=== PATIENT | female | born 1935 | race Asian ===

== ENCOUNTER 2018-07-17 04:01 | Inpatient (IN) | payer MEDICARE, OTHER, MEDICAID ==
[2018-07-17] MEDS: SOD CHLORIDE 0.9% 500 ML IV (04:04)
[2018-07-17 04:45] LABS: ADD MAN DIFF? NO
[2018-07-17 04:47] LABS: WHITE BLOOD COUNT 5.2 10^3/ul (4.8-10.8)
[2018-07-17 04:47] LABS: BASOPHILS % 0.4 % (0.0-2.0); EOSINOPHILS # 0.2 10^3/ul (0.0-0.5); EOSINOPHILS % 3.9 % (0.0-7.0); HEMOGLOBIN 11.6 g/dl (12.0-16.0); LYMPHOCYTES # 2.1 10^3/ul (0.8-2.9); LYMPHOCYTES % 41.2 % (15.0-51.0); MEAN CORPUSCULAR HEMOGLOBIN 29.6 pg (29.0-33.0); MEAN CORPUSCULAR HGB CONC 32.2 g/dl (32.0-37.0); MEAN CORPUSCULAR VOLUME 91.8 fl (82.0-101.0); MEAN PLATELET VOLUME 10.2 fl (7.4-10.4); MONOCYTE # 0.5 10^3/ul (0.3-0.9); MONOCYTES % 8.7 % (0.0-11.0); NEUTROPHIL # 2.4 10^3/ul (1.6-7.5); NEUTROPHILS % 45.6 % (39.0-77.0); PLATELET COUNT 194 10^3/UL (140-415); RED BLOOD COUNT 3.92 10^6/ul (4.20-5.40); RED CELL DISTRIBUTION WIDTH 13.2 % (11.5-14.5)
[2018-07-17 05:02] LABS: ANION GAP 8 (5-13); BLOOD UREA NITROGEN 48 mg/dl (7-20); CALCIUM 9.4 mg/dl (8.4-10.2); CARBON DIOXIDE 25 mmol/L (21-31); CHLORIDE 108 mmol/L (97-110); CREATININE 1.87 mg/dl (0.44-1.00); GLUCOSE 105 mg/dl (70-220); POTASSIUM 4.7 mmol/L (3.5-5.1); SODIUM 141 mmol/L (135-144)
[2018-07-17 05:05] LABS: PROTIME 12.2 Sec (11.9-14.9)
[2018-07-17 05:06] LABS: PARTIAL THROMBOPLASTIN TIME 31.7 Sec (23.0-35.0)
[2018-07-17 05:13] LABS: TROPONIN-I 0.033 ng/ml (0.000-0.120)
[2018-07-17] MEDS: hydrALAzine 20 MG INJ IV (06:04)
[2018-07-17] MEDS: ONDANSETRON 4 MG INJ IV (06:18)
[2018-07-17] MEDS: ACETAMINOPHEN 325 MG TAB PO (07:36)
[2018-07-17] MEDS ORDERED: HYDROCHLOROTHIAZIDE 25 MG TAB PO (11:45)
[2018-07-17] MEDS ORDERED: LOSARTAN 50 MG TAB PO (11:45)
[2018-07-17] MEDS: AZITHROMYCIN 500 MG in SOD CHLORIDE 0.9% 250 ML IVPB (13:20)
[2018-07-17] MEDS: ATORVASTATIN 10 MG TAB PO (20:56)
[2018-07-17] MEDS ORDERED: NON-FORMULARY/PATIENT OWN MED (Simvastatin* (Zocor*) 10 MG) PO (21:00)
[2018-07-18] MEDS: ASCORBIC ACID 500 MG TAB PO (08:12)
[2018-07-18] MEDS: CHOLECALCIFEROL 1,000 UNIT TAB PO (08:12)
[2018-07-18] MEDS: DONEPEZIL 10 MG TAB PO (08:12)
[2018-07-18] MEDS: LOSARTAN 50 MG TAB PO (08:13)
[2018-07-18] MEDS: HYDROCHLOROTHIAZIDE 25 MG TAB PO (08:13)
[2018-07-18] MEDS: METOPROLOL (XL) 50 MG TAB PO (08:14)
[2018-07-18] MEDS ORDERED: NON-FORMULARY/PATIENT OWN MED (Losartan-Hydrochlorothiazide (Losartan-HCTZ) 1 TAB) PO (09:00)
[2018-07-18 12:26] LABS: ADD UMIC NO; UR ASCORBIC ACID NEGATIVE (NEGATIVE); UR BILIRUBIN (Dip) NEGATIVE (NEGATIVE); UR BLOOD (Dip) NEGATIVE (NEGATIVE); UR CLARITY CLEAR (CLEAR); UR COLOR STRAW (YELLOW); UR GLUCOSE (Dip) NEGATIVE (NEGATIVE); UR KETONES (Dip) NEGATIVE (NEGATIVE); UR LEUKOCYTE ESTERASE (Dip) NEGATIVE Leu/ul (NEGATIVE); UR NITRITE (Dip) NEGATIVE (NEGATIVE); UR SPECIFIC GRAVITY (Dip) 1.012 (1.003-1.030); UR TOTAL PROTEIN (Dip) NEGATIVE (NEGATIVE); UR UROBILINOGEN (Dip) NEGATIVE (NEGATIVE)
[2018-07-18] MEDS: AZITHROMYCIN 500MG/NS (PMX) 250 ML IV (13:02)
[2018-07-18 16:17] LABS: ANION GAP 10 (5-13); BLOOD UREA NITROGEN 58 mg/dl (7-20); CALCIUM 8.7 mg/dl (8.4-10.2); CARBON DIOXIDE 23 mmol/L (21-31); CHLORIDE 105 mmol/L (97-110); CREATININE 1.95 mg/dl (0.44-1.00); GLUCOSE 103 mg/dl (70-220); POTASSIUM 4.6 mmol/L (3.5-5.1); SODIUM 138 mmol/L (135-144)
[2018-07-18] MEDS: ATORVASTATIN 10 MG TAB PO (20:26)
[2018-07-19] MEDS: hydrALAzine 20 MG INJ IV (05:55)
[2018-07-19] MEDS: METOPROLOL (XL) 50 MG TAB PO (09:00)
[2018-07-19] MEDS: DONEPEZIL 10 MG TAB PO (09:06)
[2018-07-19] MEDS: ASCORBIC ACID 500 MG TAB PO (09:06)
[2018-07-19] MEDS: AMLODIPINE 5 MG TAB PO (09:06)
[2018-07-19] MEDS: CHOLECALCIFEROL 1,000 UNIT TAB PO (09:06)
[2018-07-19] MEDS: AZITHROMYCIN 500MG/NS (PMX) 250 ML IV (13:27)
[2018-07-19 18:16] LABS: ANION GAP 14 (5-13); BLOOD UREA NITROGEN 53 mg/dl (7-20); CALCIUM 9.3 mg/dl (8.4-10.2); CARBON DIOXIDE 24 mmol/L (21-31); CHLORIDE 105 mmol/L (97-110); CREATININE 1.79 mg/dl (0.44-1.00); GLUCOSE 154 mg/dl (70-220); POTASSIUM 4.4 mmol/L (3.5-5.1); SODIUM 143 mmol/L (135-144)
[2018-07-19 18:27] LABS: TROPONIN-I 0.025 ng/ml (0.000-0.120)
[2018-07-19] MEDS ORDERED: AMLODIPINE 5 MG TAB PO (21:00)
[2018-07-20] MEDS ORDERED: ASPIRIN 81 MG TAB PO (09:00)
== END 2018-07-19 18:51 | disposition home or self-care (01) | DRG 305 ==
LOC: E/R 04:01 → TEL 05:42
DX: I16.0 Hypertensive urgency (principal); I16.1 Hypertensive emergency; N39.0 Urinary tract infection, site not specified; F03.90 Unspecified dementia, unspecified severity, without behavioral disturbance, psychotic disturbance, mood disturbance, and anxiety; R00.1 Bradycardia, unspecified; D64.9 Anemia, unspecified; E78.00 Pure hypercholesterolemia, unspecified; I12.9 Hypertensive chronic kidney disease with stage 1 through stage 4 chronic kidney disease, or unspecified chronic kidney disease; N18.9 Chronic kidney disease, unspecified; Z86.73 Personal history of transient ischemic attack (TIA), and cerebral infarction without residual deficits
CPT/HCPCS: 36415; 70450; 70552; 71045; 80048; 81003; 84484; 85025; 85610; 85730; 93005; 93306; 93880; 99291-25

== ENCOUNTER 2019-01-19 09:15 | Inpatient (IN) | payer MEDICARE, OTHER ==
[2019-01-19 10:08] LABS: ADD MAN DIFF? NO
[2019-01-19 10:12] LABS: BASOPHILS % 0.3 % (0.0-2.0); EOSINOPHILS # 0.2 10^3/ul (0.0-0.5); EOSINOPHILS % 1.6 % (0.0-7.0); HEMATOCRIT 36.5 % (37.0-47.0); HEMOGLOBIN 12.3 g/dl (12.0-16.0); LYMPHOCYTES # 3.6 10^3/ul (0.8-2.9); LYMPHOCYTES % 35.2 % (15.0-51.0); MEAN CORPUSCULAR HEMOGLOBIN 29.7 pg (29.0-33.0); MEAN CORPUSCULAR HGB CONC 33.7 g/dl (32.0-37.0); MEAN CORPUSCULAR VOLUME 88.2 fl (82.0-101.0); MEAN PLATELET VOLUME 10.5 fl (7.4-10.4); MONOCYTE # 0.6 10^3/ul (0.3-0.9); MONOCYTES % 5.4 % (0.0-11.0); NEUTROPHIL # 5.8 10^3/ul (1.6-7.5); NEUTROPHILS % 57.2 % (39.0-77.0); PLATELET COUNT 179 10^3/UL (140-415); RED BLOOD COUNT 4.14 10^6/ul (4.20-5.40)
[2019-01-19 10:12] LABS: WHITE BLOOD COUNT 10.2 10^3/ul (4.8-10.8)
[2019-01-19 10:15] LABS: ADD UMIC YES; UR ASCORBIC ACID 20 mg/dL (NEGATIVE); UR BILIRUBIN (Dip) NEGATIVE (NEGATIVE); UR BLOOD (Dip) NEGATIVE (NEGATIVE); UR CLARITY CLEAR (CLEAR); UR COLOR COLORLESS (YELLOW); UR GLUCOSE (Dip) NEGATIVE (NEGATIVE); UR KETONES (Dip) NEGATIVE (NEGATIVE); UR LEUKOCYTE ESTERASE (Dip) NEGATIVE Leu/ul (NEGATIVE); UR NITRITE (Dip) NEGATIVE (NEGATIVE); UR RBC 0 /HPF (0-5); UR SPECIFIC GRAVITY (Dip) 1.005 (1.003-1.030); UR TOTAL PROTEIN (Dip) 1+ mg/dl (NEGATIVE); UR UROBILINOGEN (Dip) NEGATIVE (NEGATIVE); UR WBC 0 /HPF (0-5)
[2019-01-19 10:40] LABS: ALANINE AMINOTRANSFERASE 17 IU/L (13-69); ALBUMIN 5.1 g/dl (3.3-4.9); ALBUMIN/GLOBULIN RATIO 1.04; ALKALINE PHOSPHATASE 71 IU/L (42-121); ANION GAP 16 (5-13); ASPARTATE AMINO TRANSFERASE 42 IU/L (15-46); BILIRUBIN,INDIRECT 0.4 mg/dl (0-1.1); BILIRUBIN,TOTAL 0.4 mg/dl (0.2-1.3); BLOOD UREA NITROGEN 46 mg/dl (7-20); CALCIUM 10.4 mg/dl (8.4-10.2); CARBON DIOXIDE 20 mmol/L (21-31); CHLORIDE 106 mmol/L (97-110); GLUCOSE 177 mg/dl (70-220); POTASSIUM 4.5 mmol/L (3.5-5.1); SODIUM 142 mmol/L (135-144)
[2019-01-19] MEDS: SOD CHLORIDE 0.9% 1,000 ML IV ×2 (15:47→20:07)
[2019-01-19] MEDS: ONDANSETRON 4 MG INJ IV (15:47)
[2019-01-19] MEDS: morphine 2 MG INJ IV (15:47)
[2019-01-19] MEDS ORDERED: ACETAMINOPHEN 325 MG TAB PO (17:00)
[2019-01-19] MEDS ORDERED: ONDANSETRON 4 MG INJ IV ×2 (17:00→17:30)
[2019-01-19] MEDS ORDERED: morphine 2 MG INJ IV (17:30)
[2019-01-19] MEDS ORDERED: NACL 0.9% 3 ML SYG IV (17:30)
[2019-01-19] MEDS: ATORVASTATIN 10 MG TAB PO (20:07)
[2019-01-19] MEDS: HEPARIN 5,000 UNIT/1 ML VIAL SC (20:08)
[2019-01-20] MEDS: SOD CHLORIDE 0.9% 1,000 ML IV ×4 (03:18→16:01)
[2019-01-20 05:33] LABS: ADD MAN DIFF? NO
[2019-01-20 05:41] LABS: WHITE BLOOD COUNT 6.1 10^3/ul (4.8-10.8)
[2019-01-20 05:41] LABS: BASOPHILS % 0.7 % (0.0-2.0); EOSINOPHILS # 0.2 10^3/ul (0.0-0.5); EOSINOPHILS % 3.3 % (0.0-7.0); HEMATOCRIT 29.6 % (37.0-47.0); HEMOGLOBIN 9.6 g/dl (12.0-16.0); LYMPHOCYTES # 2.4 10^3/ul (0.8-2.9); LYMPHOCYTES % 39.6 % (15.0-51.0); MEAN CORPUSCULAR HGB CONC 32.4 g/dl (32.0-37.0); MEAN CORPUSCULAR VOLUME 89.4 fl (82.0-101.0); MEAN PLATELET VOLUME 10.7 fl (7.4-10.4); MONOCYTE # 0.4 10^3/ul (0.3-0.9); MONOCYTES % 7.3 % (0.0-11.0); NEUTROPHILS % 48.8 % (39.0-77.0); PLATELET COUNT 148 10^3/UL (140-415); RED BLOOD COUNT 3.31 10^6/ul (4.20-5.40); RED CELL DISTRIBUTION WIDTH 13.2 % (11.5-14.5)
[2019-01-20 05:59] LABS: HEMOGLOBIN A1C 5.7 % (0-5.9)
[2019-01-20 06:06] LABS: ANION GAP 9 (5-13); BLOOD UREA NITROGEN 38 mg/dl (7-20); CALCIUM 8.6 mg/dl (8.4-10.2); CARBON DIOXIDE 22 mmol/L (21-31); CHLORIDE 113 mmol/L (97-110); CREATININE 2.19 mg/dl (0.44-1.00); GLUCOSE 96 mg/dl (70-220); MAGNESIUM 2.2 mg/dl (1.7-2.5); PHOSPHORUS 4.4 mg/dl (2.5-4.9); POTASSIUM 4.5 mmol/L (3.5-5.1); SODIUM 144 mmol/L (135-144)
[2019-01-20] MEDS: ASPIRIN (EC) 81 MG TAB PO (08:56)
[2019-01-20] MEDS: RALOXIFENE 60 MG TAB PO (08:56)
[2019-01-20] MEDS: DONEPEZIL 10 MG TAB PO (08:56)
[2019-01-20] MEDS: AMLODIPINE 10 MG TAB PO (08:57)
[2019-01-20] MEDS: HYDROCHLOROTHIAZIDE 25 MG TAB PO (08:57)
[2019-01-20] MEDS: LOSARTAN 50 MG TAB PO (08:58)
[2019-01-20] MEDS: METOPROLOL (XL) 50 MG TAB PO (08:58)
[2019-01-20] MEDS: HEPARIN 5,000 UNIT/1 ML VIAL SC ×2 (09:00→21:31)
[2019-01-20] MEDS: ACETAMINOPHEN 325 MG TAB PO (17:13)
[2019-01-20] MEDS: ATORVASTATIN 10 MG TAB PO (21:21)
[2019-01-21] MEDS: ZOLPIDEM 5 MG TAB PO (01:23)
[2019-01-21] MEDS: SOD CHLORIDE 0.9% 1,000 ML IV ×3 (01:29→22:10)
[2019-01-21 06:49] LABS: ANION GAP 6 (5-13); BLOOD UREA NITROGEN 32 mg/dl (7-20); CALCIUM 8.3 mg/dl (8.4-10.2); CARBON DIOXIDE 20 mmol/L (21-31); CHLORIDE 118 mmol/L (97-110); CREATININE 1.63 mg/dl (0.44-1.00); GLUCOSE 100 mg/dl (70-220); POTASSIUM 4.8 mmol/L (3.5-5.1); SODIUM 144 mmol/L (135-144)
[2019-01-21] MEDS: RALOXIFENE 60 MG TAB PO (08:51)
[2019-01-21] MEDS: DONEPEZIL 10 MG TAB PO (08:51)
[2019-01-21] MEDS: AMLODIPINE 10 MG TAB PO (08:51)
[2019-01-21] MEDS: HYDROCHLOROTHIAZIDE 25 MG TAB PO (08:51)
[2019-01-21] MEDS: LOSARTAN 50 MG TAB PO (08:51)
[2019-01-21] MEDS: METOPROLOL (XL) 50 MG TAB PO (08:51)
[2019-01-21] MEDS: ASPIRIN (EC) 81 MG TAB PO (08:51)
[2019-01-21] MEDS: HEPARIN 5,000 UNIT/1 ML VIAL SC ×2 (09:03→22:09)
[2019-01-21] MEDS: BETAMET NA PHOS/AC(6 MG/ML) 5ML INJ INJ (12:00)
[2019-01-21] MEDS: BUPIVACAINE 0.5%/EPI (SDV) 30 ML INJ INJ (12:00)
[2019-01-21] MEDS: ATORVASTATIN 10 MG TAB PO (22:06)
[2019-01-22] MEDS: ZOLPIDEM 5 MG TAB PO ×2 (01:38→20:50)
[2019-01-22] MEDS: HEPARIN 5,000 UNIT/1 ML VIAL SC ×2 (08:47→21:04)
[2019-01-22] MEDS: ASPIRIN (EC) 81 MG TAB PO (08:47)
[2019-01-22] MEDS: RALOXIFENE 60 MG TAB PO (08:47)
[2019-01-22] MEDS: LOSARTAN 50 MG TAB PO (08:48)
[2019-01-22] MEDS: AMLODIPINE 10 MG TAB PO (08:48)
[2019-01-22] MEDS: DONEPEZIL 10 MG TAB PO (08:49)
[2019-01-22] MEDS: HYDROCHLOROTHIAZIDE 25 MG TAB PO (08:49)
[2019-01-22] MEDS: METOPROLOL (XL) 50 MG TAB PO (08:49)
[2019-01-22] MEDS: SOD CHLORIDE 0.9% 1,000 ML IV (08:57)
[2019-01-22] MEDS: ATORVASTATIN 10 MG TAB PO (20:49)
[2019-01-22] MEDS: HYDROCODONE/APAP (5/325) TAB PO (21:17)
[2019-01-22] MEDS ORDERED: LORAZEPAM 2 MG INJ IV (23:00)
[2019-01-22] MEDS: HALOPERIDOL 5 MG INJ IM (23:27)
[2019-01-23] MEDS: LOSARTAN 50 MG TAB PO (08:06)
[2019-01-23] MEDS: HYDROCHLOROTHIAZIDE 25 MG TAB PO (08:07)
[2019-01-23] MEDS: ASPIRIN (EC) 81 MG TAB PO (08:07)
[2019-01-23] MEDS: RALOXIFENE 60 MG TAB PO (08:07)
[2019-01-23] MEDS: DONEPEZIL 10 MG TAB PO (08:07)
[2019-01-23] MEDS: AMLODIPINE 10 MG TAB PO (08:07)
[2019-01-23] MEDS: METOPROLOL (XL) 50 MG TAB PO (08:08)
[2019-01-23] MEDS: HEPARIN 5,000 UNIT/1 ML VIAL SC (08:09)
[2019-01-23] MEDS: DOCUSATE SODIUM 100 MG CAP PO (11:58)
== END 2019-01-23 13:30 | DRG 563 ==
LOC: E/R 09:15 → 2NE 16:34
PROC: 3E0U33Z Introduction of Anti-inflammatory into Joints, Percutaneous Approach (ICD-10-PCS; principal; 2019-01-21)
DX: S83.242A Other tear of medial meniscus, current injury, left knee, initial encounter (principal); N17.9 Acute kidney failure, unspecified; G30.9 Alzheimer's disease, unspecified; F02.80 Dementia in other diseases classified elsewhere, unspecified severity, without behavioral disturbance, psychotic disturbance, mood disturbance, and anxiety; N18.9 Chronic kidney disease, unspecified; I44.0 Atrioventricular block, first degree; E78.5 Hyperlipidemia, unspecified; E86.0 Dehydration; Z86.73 Personal history of transient ischemic attack (TIA), and cerebral infarction without residual deficits; I12.9 Hypertensive chronic kidney disease with stage 1 through stage 4 chronic kidney disease, or unspecified chronic kidney disease; M17.12 Unilateral primary osteoarthritis, left knee; S89.82XA Other specified injuries of left lower leg, initial encounter; X58.XXXA Exposure to other specified factors, initial encounter
CPT/HCPCS: 72148; 73510; 73560; 73721; 76775; 80048; 80053; 81001; 83036; 83735; 84100; 85025; 93971; 96374; 96375; 97110; 97116; 97161; 97530; 99285-25